=== PATIENT | female | born 1945 | race African-American/Black ===

== ENCOUNTER 2018-09-06 11:07 | Emergency (ER) | payer MEDICARE ==
[2018-09-06] MEDS ORDERED: POLYMYXIN B SULFATE/TMP OPH SOLN (10 ML/ER DISP) OU PRN (11:30)
--- NOTE | 2018-09-06 11:32 | ER Document Report ---
HPI - HPI Time Seen by Provider: 09/06/18 11:24 Pain Level: 1 Context: Patient is a 73-year-old female who presents the emergency department with a chief complaint of bilateral eye redness. She states that she has had this for the past week. She states that they continue to water and continue to be reddened. She attempted to take [id number] allergy I wash to help with her symptoms, but has had little relief. A month ago she did have cataract surgery, but denies any complications from her cataract surgery. She has not seen her primary care provider in regards to this issue. Her blood pressure here in the emergency department is 157/101, but she has not taken her blood pressure medication this morning. Past medical history includes hypertension and cataracts. - ROS Systems Reviewed and Negative: Yes All other systems reviewed and negative - CONSTITUTIONAL Constitutional: DENIES: Fever, Chills - EENT EENT: REPORTS: Eye problems - Bilateral eye redness. DENIES: Sore Throat, Ear Pain, Nasal Drainage-Clear - NEURO Neurology: DENIES: Headache, Weakness, Vision blurred, Dizzinesss / Vertigo - CARDIOVASCULAR Cardiovascular: DENIES: Chest pain - RESPIRATORY Respiratory: DENIES: Coughing - GASTROINTESTINAL Gastrointestinal: DENIES: Abdominal Pain - MUSCULOSKELETAL Musculoskeletal: DENIES: Extremity pain - DERM Skin Color: Normal Skin Problems: None Past Medical History - Social History Smoking Status: Never Smoker Family History: Reviewed & Not Pertinent Vertical Provider Document - CONSTITUTIONAL Agree With Documented VS: Yes Exam Limitations: No Limitations General Appearance: No Apparent Distress - INFECTION CONTROL TRAVEL OUTSIDE OF THE [place] IN LAST 30 DAYS: No - HEENT HEENT: Atraumatic, Conjuctival Injection, Normocephalic, PERRLA. negative: Pharyngeal Tenderness - NECK Neck: Normal Inspection - RESPIRATORY Respiratory: Breath Sounds Normal, No Respiratory Distress - CARDIOVASCULAR Cardiovascular: Regular Rate, Regular Rhythm Pulses: Normal: Radial - MUSCULOSKELETAL/EXTREMETIES Musculoskeletal/Extremeties: FROM - NEURO Level of Consciousness: Awake, Alert, Appropriate Motor/Sensory: No Motor Deficit, No Sensory Deficit - DERM Integumentary: Warm, Dry, No Rash Course - Re-evaluation Re-evalutation: 09/06/18 11:32 Patient's physical exam is consistent with conjunctivitis. She will be started on Polytrim eyedrops. They will be provided here in the emergency department. I do not suspect a corneal abrasion, corneal irritation, globe rupture, or any life-threatening etiology at this time. She will follow-up with her primary care doctor. I told her that she needs to take her blood pressure medication t his morning, because her blood pressure is elevated. She verbalized understanding. She states that she will take her blood pressure medication this morning. Verbal discharge instructions were given to the patient. They verbalized understanding. They are stable for discharge. - Vital Signs Vital signs: Temp Pulse Resp BP Pulse Ox 98.2 F 80 14 157/101 H 99 09/06/18 11:15 09/06/18 11:15 09/06/18 11:15 09/06/18 11:15 09/06/18 11:15 Discharge - Discharge Clinical Impression: Conjunctivitis Qualifiers: Conjunctivitis type: unspecified Laterality: bilateral Qualified Code(s): H10.9 - Unspecified conjunctivitis Condition: Stable Disposition: HOME, SELF-CARE Additional Instructions: Conjunctivitis You have an infection in your eye, commonly known as "pink eye." Conjunctivitis causes redness, mild discomfort, itching, and mattering on the eyelids. It is very contagious, so you must be careful to wash your hands after touching your face so you don't pass the infection on to others. Conjunctivitis is caused by both viruses and bacteria. It usually responds quickly to treatment with antibiotic drops. These should be placed in the eye as prescribed (usually every three to four hours while you're awake). If you wear contact lenses, don't put them in your eyes until the infection is cleared and you are no longer using the drops (unless your doctor advises you otherwise). Should you develop increasing eye pain, severe swelling, decreased vision, or fail to improve as expected, please return for re-examination. Please place 1 drop to both eyes every 3 hours while awake.
[2018-09-06 11:51] VITALS: BP 171/107
== END 2018-09-06 11:51 | disposition home or self-care (01) ==
LOC: ER 11:07
DX: H10.9 Unspecified conjunctivitis (principal); Z98.890 Other specified postprocedural states; I10 Essential (primary) hypertension; Z79.899 Other long term (current) drug therapy
CPT/HCPCS: 99283; J3490